=== PATIENT | female | born 1970 | race Caucasian/White ===

== ENCOUNTER 2021-04-08 07:25 | Day surgery (SDC) | payer OTHER ==
[~2021-04-08] VITALS: Ht 165.1 cm; Wt 68.2 kg
[2021-04-08 07:47] VITALS: BP 134/91
[2021-04-08] MEDS ORDERED: MOBIC15 MG PO (09:36)
[2021-04-08 12:18] LABS: HEMATOCRIT 37.2 % (37.0-47.0); HEMOGLOBIN 12.5 g/dl (12.0-16.0); IMMATURE GRANULOCYTES 0.3 % (0.0-5.0); MEAN CELL VOLUME 83.2 fL CALC (80.0-100.0); MEAN CORPUSCULAR HGB CONC 33.6 g/dL CAL (32.0-36.0); NEUT# 2.21 thou/uL (2.00-7.15); RED BLOOD COUNT 4.47 mill/uL (4.20-5.60)
[2021-04-08 12:31] LABS: ALBUMIN 3.7 g/dL (3.2-5.0); ALKALINE PHOSPHATASE 99 u/l (38-126); ANION GAP 10 (6-22 (CALC)); BILIRUBIN, TOTAL 0.5 mg/dL (0.0-1.4); BUN 12 mg/dL (7-17); BUN/CREATININE RATIO 21 (12-20 (CALC)); CARBON DIOXIDE 26 mmol/l (22-30); CHLORIDE 107 mmol/l (95-108); CREATININE 0.6 mg/dL (0.5-1.0); GFR > 60 ML/MIN (>=60 (CALC)); GFR FOR AFR.AMER. > 60 ML/MIN (>=60 (CALC)); POTASSIUM 3.6 mmol/l (3.5-5.1); SGOT/AST 56 u/l (14-36); SODIUM 139 mmol/l (137-146)
[2021-04-08] MEDS ORDERED: CLONIDINE0.1 MG PO (13:37)
[2021-04-08] MEDS ORDERED: KLONOPIN0.5 MG PO (13:38)
[2021-04-08] MEDS ORDERED: NALTREXONE50 MG PO (13:38)
[2021-04-08 22:50] VITALS: BP 140/76
[2021-04-09 04:00] VITALS: BP 125/70
[2021-04-09 08:05] VITALS: BP 129/77
[2021-04-09 11:22] VITALS: BP 113/65
== END 2021-04-09 15:55 | disposition home or self-care (01) | DRG 897 ==
LOC: ANR 07:25 → MS2 07:40 → ANR 09:56
PROVIDERS: ATTEND Anesthesiology
DX: F11.20 Opioid dependence, uncomplicated (principal)
CPT/HCPCS: J2354